=== PATIENT | male | born 1980 | race Two or more races ===

== ENCOUNTER 2017-09-19 22:17 | Emergency (ER) | payer MEDICAID ==
[~2017-09-19] VITALS: Ht 165.1 cm; Wt 88.9 kg
[2017-09-19] MEDS ORDERED: OMEPRAZOLE (22:45)
--- NOTE | 2017-09-19 23:30 | NUR ---
Patient discharged to home in stable conditon. Written and verbal after care instructions given. Patient verbalizes understanding of instructions.
== END 2017-09-19 23:31 | disposition home or self-care (01) ==
LOC: ER 22:18
DX: B34.9 Viral infection, unspecified (principal); K21.9 Gastro-esophageal reflux disease without esophagitis
CPT/HCPCS: 71045; A4663

== ENCOUNTER 2018-12-21 19:02 | Emergency (ER) | payer MEDICAID ==
[~2018-12-21] VITALS: Ht 165.1 cm; Wt 88.5 kg
[~2018-12-21 19:02] MED LIST: OMEPRAZOLE
--- NOTE | 2018-12-21 19:20 | NUR ---
Dr. Franklin at bedside for MSE.
[2018-12-21] MEDS ORDERED: MAG HYDROX/AL HYDROX/SIMETH 30 ML LIQUID UDC ONE (19:26)
[2018-12-21] MEDS ORDERED: PANTOPRAZOLE SODIUM 40 MG TABLET.DR PO ONE (19:27)
[2018-12-21] MEDS ORDERED: LIDOCAINE VISCUS 2% 15 ML UDC ONE (19:27)
[2018-12-21] MEDS: MAG HYDROX/AL HYDROX/SIMETH 30 ML LIQUID UDC PO ONE (19:28)
[2018-12-21] MEDS: LIDOCAINE VISCUS 2% 15 ML UDC MM ONE (19:28)
[2018-12-21] MEDS: PANTOPRAZOLE SODIUM 40 MG TABLET.DR PO ONE (19:28)
--- NOTE | 2018-12-21 19:50 | NUR ---
Patient discharged to home in stable conditon. Written and verbal after care instructions given. Patient verbalizes understanding of instructions. Pt ambulated out of ER with steady gait, no acute signs of distress, VSS, all belongings taken.
[2018-12-21 19:53] VITALS: BP 154/97
== END 2018-12-21 19:54 | disposition home or self-care (01) ==
LOC: ER 19:02
DX: K29.70 Gastritis, unspecified, without bleeding (principal); K21.9 Gastro-esophageal reflux disease without esophagitis; Z79.899 Other long term (current) drug therapy
CPT/HCPCS: A4663

== ENCOUNTER 2019-11-14 19:17 | Emergency (ER) | payer MEDICAID ==
[~2019-11-14] VITALS: Ht 165.1 cm; Wt 90.7 kg
[2019-11-14 20:17] VITALS: BP 157/98
== END 2019-11-14 20:17 | disposition home or self-care (01) ==
LOC: ER 19:18
DX: F41.9 Anxiety disorder, unspecified (principal); R51 Headache
CPT/HCPCS: A4663

== ENCOUNTER 2020-02-20 20:35 | Emergency (ER) | payer MEDICAID ==
[~2020-02-20] VITALS: Ht 165.1 cm; Wt 83.9 kg
[2020-02-20] MEDS ORDERED: MAG HYDROX/AL HYDROX/SIMETH 30 ML LIQUID UDC ONE (21:11)
[2020-02-20] MEDS ORDERED: LIDOCAINE VISCUS 2% 15 ML UDC ONE (21:11)
[2020-02-20] MEDS ORDERED: PANTOPRAZOLE SODIUM 40 MG TABLET.DR PO ONE ×2 (21:11→21:15)
[2020-02-20] MEDS ORDERED: LIDOCAINE VISCUS 2% 15 ML UDC MM ONE (21:15)
[2020-02-20] MEDS ORDERED: MAG HYDROX/AL HYDROX/SIMETH 30 ML LIQUID UDC PO ONE (21:15)
--- NOTE | 2020-02-20 21:15 | NUR ---
Assumed care for this patient at this time. Triage done and Dr. Franklin has seen patient with orders for meds given by collections clerk. Appears to be tolerating the medications given. VS monitored and stable at this time. Side rails up x 1. Bed locked in place. Monitoring for signs of improvement after PO meds.
--- NOTE | 2020-02-20 21:35 | NUR ---
Pt verbalized that he is feeling better, and would like to go home. Patient was cleared for discharged to home. Written and verbal after care instructions given. Patient verbalizes understanding of instructions. Stressed follow up or return to ER for worsening s/s. Ambulated out of ER in steady gait.
[2020-02-20 21:37] VITALS: BP 145/85
== END 2020-02-20 21:38 | disposition home or self-care (01) ==
LOC: ER 20:36
DX: K29.70 Gastritis, unspecified, without bleeding (principal); R19.7 Diarrhea, unspecified; F41.9 Anxiety disorder, unspecified
CPT/HCPCS: A4663

== ENCOUNTER 2021-07-21 15:52 | Emergency (ER) | payer MEDICAID ==
[~2021-07-21] VITALS: Ht 165.1 cm; Wt 86.2 kg
[2021-07-21] MEDS ORDERED: PANTOPRAZOLE SODIUM 40 MG TABLET.DR PO ONE ×2 (19:45)
[2021-07-21] MEDS ORDERED: OMEP40CA21 PO (19:57)
[2021-07-21 20:02] VITALS: BP 120/87
--- NOTE | 2021-07-21 20:02 | NUR ---
Patient discharged to home in stable condition. Written and verbal after care instructions given. Patient verbalizes understanding of instructions. Stressed follow up or return to ER for worsening s/s. Patient out of ER with steady gait, no acute signs of distress, VSS, all belongings taken.
== END 2021-07-21 20:02 | disposition home or self-care (01) ==
LOC: ER 15:56
DX: K29.70 Gastritis, unspecified, without bleeding (principal); K21.9 Gastro-esophageal reflux disease without esophagitis
CPT/HCPCS: A4663

== ENCOUNTER 2021-09-14 20:54 | Emergency (ER) | payer MEDICAID ==
[~2021-09-14] VITALS: Ht 165.1 cm; Wt 86.2 kg
[~2021-09-14 20:54] MED LIST changes: +OMEP40CA21 PO
[2021-09-14] MEDS ORDERED: MAG HYDROX/AL HYDROX/SIMETH 30 ML LIQUID UDC PO ONE (21:15)
[2021-09-14] MEDS ORDERED: LIDOCAINE VISCUS 2% 15 ML UDC MM ONE (21:15)
[2021-09-14] MEDS ORDERED: MAG HYDROX/AL HYDROX/SIMETH 30 ML LIQUID UDC ONE (21:38)
[2021-09-14] MEDS ORDERED: ZOLP10TA2 PO ×2 (22:09→22:15)
[2021-09-14] MEDS ORDERED: MELA3TAB41 PO (22:09)
[2021-09-14] MEDS ORDERED: OMEP40CA21 PO (22:09)
--- NOTE | 2021-09-14 22:19 | NUR ---
Patient discharged to home in stable condition. Written and verbal after care instructions given. Patient verbalizes understanding of instructions. Stressed follow up or return to ER for worsening s/s.
[2021-09-14 22:20] VITALS: BP 129/97
== END 2021-09-14 22:20 | disposition home or self-care (01) ==
LOC: ER 20:55
DX: K29.70 Gastritis, unspecified, without bleeding (principal); F41.9 Anxiety disorder, unspecified; G47.00 Insomnia, unspecified; I45.10 Unspecified right bundle-branch block; R03.0 Elevated blood-pressure reading, without diagnosis of hypertension
CPT/HCPCS: 93005; A4663

== ENCOUNTER 2022-05-03 12:28 | Emergency (ER) | payer MEDICAID ==
[~2022-05-03] VITALS: Ht 165.1 cm; Wt 88.5 kg
[~2022-05-03 12:28] MED LIST changes: +MELA3TAB41 PO; -OMEPRAZOLE; +ZOLP10TA2 PO
[2022-05-03] MEDS ORDERED: IBUPROFEN 600 MG TABLET PO ONE (12:45)
[2022-05-03] MEDS ORDERED: IBUPROFEN 600 MG TABLET ONE (13:00)
--- NOTE | 2022-05-03 13:03 | NUR ---
PT IS IN ROOM #2A. DR ROSSI EVALUATED THE PT.
[2022-05-03 14:11] LABS: HEMATOCRIT 44.6 % (36.7-47.1); MEAN CORPUSCULAR HEMOGLOBIN 28.8 uug (23.8-33.4); MEAN CORPUSCULAR VOLUME 85.8 fL (73.0-96.2); PLATELET COUNT (AUTO) 192 K/uL (152-348)
[2022-05-03 14:36] LABS: CARBON DIOXIDE 27 mmol/L (21-32); CHLORIDE 103 mmol/L (98-107); GLUCOSE 100 mg/dL (74-106); UREA NITROGEN, BLOOD 15 mg/dL (7-18)
[2022-05-03] MEDS ORDERED: IBUP-1955 PO (15:03)
--- NOTE | 2022-05-03 16:13 | NUR ---
PT WAS D/C'd TO HOME. D/C INSTRUCTIONS GIVEN TO THE PT BY DR ROSSI.
[2022-05-03 16:14] VITALS: BP 135/75
== END 2022-05-03 16:14 | disposition home or self-care (01) ==
LOC: ER 12:28
DX: R07.89 Other chest pain (principal); F41.9 Anxiety disorder, unspecified; R94.31 Abnormal electrocardiogram [ECG] [EKG]; K21.9 Gastro-esophageal reflux disease without esophagitis; Z79.899 Other long term (current) drug therapy
CPT/HCPCS: 36415; 71045; 84484; 85025; 93005; A4663

== ENCOUNTER 2023-01-31 05:51 | Emergency (ER) | payer MEDICAID ==
[~2023-01-31] VITALS: Ht 165.1 cm; Wt 88.5 kg
[~2023-01-31 05:51] MED LIST changes: +IBUP-1955 PO; +OMEP20CA15 PO
--- NOTE | 2023-01-31 06:30 | NUR ---
Patient A/O X 4. NAD noted. Ambulatory with a steady gait.
--- NOTE | 2023-01-31 07:04 | NUR ---
Patient discharged to home in stable condition by Dr. Woods. A/O x 4. NAD noted. Ambulatory with a steady gait. Written and verbal after care instructions given. Patient verbalizes understanding of instructions. Stressed follow up or return to ER for worsening s/s.
== END 2023-01-31 07:05 | disposition home or self-care (01) ==
LOC: ER 05:51
DX: B34.9 Viral infection, unspecified (principal); R07.89 Other chest pain; Z79.1 Long term (current) use of non-steroidal anti-inflammatories (NSAID); Z79.899 Other long term (current) drug therapy
CPT/HCPCS: 93005; A4663

== ENCOUNTER 2023-06-23 02:52 | Emergency (ER) | payer MEDICAID ==
[~2023-06-23] VITALS: Ht 165.1 cm; Wt 86.2 kg
[~2023-06-23 02:52] MED LIST changes: +ACET325T53 PO; +CYCL10TA9 PO; +IBUP-1953 PO; -IBUP-1955 PO; -MELA3TAB41 PO; -OMEP20CA15 PO; -OMEP40CA21 PO; -ZOLP10TA2 PO
[2023-06-23] MEDS ORDERED: ACET1TAB23 PO (03:39)
[2023-06-23 03:58] VITALS: BP 153/91; TEMP 98.3; O2SAT 99
== END 2023-06-23 03:50 | disposition home or self-care (01) ==
LOC: ER 02:56
DX: R51.9 Headache, unspecified (principal); M54.2 Cervicalgia; R12 Heartburn; G47.00 Insomnia, unspecified; E16.1 Other hypoglycemia; Z79.1 Long term (current) use of non-steroidal anti-inflammatories (NSAID); Z79.899 Other long term (current) drug therapy
CPT/HCPCS: A4606; A4663

== ENCOUNTER 2023-09-06 17:38 | Emergency (ER) | payer MEDICAID ==
[~2023-09-06] VITALS: Ht 165.1 cm; Wt 84.8 kg
[~2023-09-06 17:38] MED LIST changes: +ACET1TAB23 PO
[2023-09-06 17:47] VITALS: O2SAT 98
[2023-09-06] MEDS ORDERED: LORAZEPAM 0.5 MG TABLET PO ONE (18:15)
[2023-09-06] MEDS ORDERED: LORAZEPAM 0.5 MG TABLET ONE (18:39)
[2023-09-06] MEDS ORDERED: LORA0.5T48 PO (18:46)
== END 2023-09-06 19:04 | disposition home or self-care (01) ==
LOC: ER 17:41
DX: F41.9 Anxiety disorder, unspecified (principal); Z79.899 Other long term (current) drug therapy
CPT/HCPCS: A4606; A4663

== ENCOUNTER 2024-01-18 01:12 | Emergency (ER) | payer MEDICAID ==
[~2024-01-18] VITALS: Ht 165.1 cm; Wt 86.2 kg
[~2024-01-18 01:12] MED LIST changes: +CYCL5TAB PO; +LORA0.5T48 PO; +NAPR500T6 PO
[2024-01-18] MEDS ORDERED: FAMOTIDINE 20 MG TABLET ONE (01:38)
[2024-01-18] MEDS: FAMOTIDINE 20 MG TABLET PO ONE (01:39)
[2024-01-18 02:15] LABS: BASOPHILS # (AUTO) 0.1 K/UL (0.0-0.2); BASOPHILS % (AUTO) 0.9 % (0.0-2.0); EOSINOPHILS # (AUTO) 0.1 K/uL (0.0-0.7); HEMATOCRIT 44.2 % (36.7-47.1); HEMOGLOBIN 15.2 g/dL (12.5-16.3); LYMPHOCYTES # (AUTO) 1.8 K/uL (0.8-4.8); LYMPHOCYTES % (AUTO) 20.9 % (20.5-51.5); MEAN CORPUSCULAR HEMOGLOBIN 29.4 uug (23.8-33.4); MEAN CORPUSCULAR HGB CONC 34 g/dL (32.5-36.3); MEAN CORPUSCULAR VOLUME 85.3 fL (73.0-96.2); MONOCYTES # (AUTO) 0.5 K/uL (0.1-1.30); MONOCYTES % (AUTO) 6.1 % (0.0-11.0); NEUTROPHILS % (AUTO) 71.1 % (38.5-71.5); PLATELET COUNT (AUTO) 173 K/uL (152-348); RED BLOOD CELL COUNT(AUTO) 5.19 MIL/uL (4.06-5.63); RED CELL DISTRIBUTION WIDTH 14.5 % (12.1-16.2); WHITE BLOOD COUNT (AUTO) 8.5 K/uL (3.6-10.2)
[2024-01-18 02:16] LABS: DIFFERENTIAL COMMENT 1
[2024-01-18 02:25] LABS: CALCIUM 8.7 mg/dL (8.5-10.1); CREATININE 1.1 mg/dL (0.6-1.3); POTASSIUM 3.6 mmol/L (3.5-5.1)
[2024-01-18 02:26] LABS: *BILIRUBIN,URIN NEGATIVE (NEGATIVE); *BLOOD, URINE NEGATIVE (NEGATIVE); *CLARITY,URINE CLEAR (CLEAR); *COLOR,URINE YELLOW (YELLOW); *KETONES,URINE NEGATIVE (NEGATIVE); *PROTEIN,URINE TRACE (NEGATIVE); *UROBILINOGEN,URINE 0.2 E.U./dl (NORMAL); LEUKOCYTE ESTERASE ,URINE NEGATIVE (NEGATIVE); NITRITE, URINE NEGATIVE (NEGATIVE); UGLUCOSE NEGATIVE (NEGATIVE)
[2024-01-18 02:30] LABS: BILIRUBIN,DIRECT 0.1 mg/dL (0.0-0.2); BILIRUBIN,TOTAL 0.6 mg/dL (0.2-1.0); TOTAL PROTEIN, SERUM 8.1 g/dL (6.4-8.2)
[2024-01-18] MEDS ORDERED: MAG HYDROX/AL HYDROX/SIMETH 30 ML LIQUID UDC ONE (02:45)
[2024-01-18] MEDS ORDERED: LIDOCAINE VISCUS 2% 15 ML UDC ONE (02:45)
[2024-01-18] MEDS: LIDOCAINE VISCUS 2% 15 ML UDC MM ONE (02:47)
[2024-01-18] MEDS: MAG HYDROX/AL HYDROX/SIMETH 30 ML LIQUID UDC PO ONE (02:48)
[2024-01-18] MEDS ORDERED: MAG355OR18 PO (03:34)
[2024-01-18 03:40] VITALS: BP 144/71; O2SAT 68
== END 2024-01-18 03:41 | disposition home or self-care (01) ==
LOC: ER 01:14
DX: R10.13 Epigastric pain (principal); K29.20 Alcoholic gastritis without bleeding; R03.0 Elevated blood-pressure reading, without diagnosis of hypertension; F41.9 Anxiety disorder, unspecified; Z79.899 Other long term (current) drug therapy
CPT/HCPCS: 36415; 83690; 85025; A4606; A4663

== ENCOUNTER → 2024-01-23 | Emergency (ER) | payer MEDICAID ==
[~2024-01-23] VITALS: Ht 165.1 cm; Wt 86.2 kg
[~2024-01-23] MED LIST changes: +DICYCLOMINE HCL LIQ 10 MG/5 ML UDC ONE; +FAMO40TA7 PO; +FAMOTIDINE 20 MG TABLET ONE; +LIDOCAINE HCL 2% 20 ML VIAL ONE; +LIDOCAINE VISCUS 2% 15 ML UDC ONE; +MAG HYDROX/AL HYDROX/SIMETH 30 ML LIQUID UDC ONE; +MAG355OR18 PO
[2024-01-23] MEDS: DICYCLOMINE HCL LIQ 10 MG/5 ML UDC PO ONE (01:42)
[2024-01-23] MEDS: MAG HYDROX/AL HYDROX/SIMETH 30 ML LIQUID UDC PO ONE (01:42)
[2024-01-23] MEDS: LIDOCAINE VISCUS 2% 15 ML UDC MM ONE (01:42)
[2024-01-23] MEDS: FAMOTIDINE 20 MG TABLET PO ONE (01:42)
[2024-01-23 01:50] LABS: *BILIRUBIN,URIN NEGATIVE (NEGATIVE); *CLARITY,URINE CLEAR (CLEAR); *COLOR,URINE YELLOW (YELLOW); *KETONES,URINE NEGATIVE (NEGATIVE); *PROTEIN,URINE NEGATIVE (NEGATIVE); *UROBILINOGEN,URINE 0.2 E.U./dl (NORMAL); LEUKOCYTE ESTERASE ,URINE NEGATIVE (NEGATIVE); NITRITE, URINE NEGATIVE (NEGATIVE); UGLUCOSE NEGATIVE (NEGATIVE)
[2024-01-23 02:17] LABS: *BLOOD, URINE TRACE (NEGATIVE)
[2024-01-23 02:35] VITALS: BP 134/88; O2SAT 99
[2024-01-23 02:40] LABS: BACTERIA,URINE FEW /HPF (NONE SEEN); RBC,URINE 0-3 /HPF (0-3); SQUAMOUS EPITHELIAL CELL,UR FEW /HPF (NONE SEEN); WBC,URINE NONE SEEN /HPF (0-3)
== END | disposition home or self-care (01) ==
LOC: ER 00:57
DX: M54.6 Pain in thoracic spine (principal); Z79.899 Other long term (current) drug therapy
CPT/HCPCS: 99285; 71045; 81001; 83690; 36415; 93005; J3490; A4606; A4663

== ENCOUNTER 2024-12-31 03:25 | Emergency (ER) | payer MEDICAID ==
[~2024-12-31] VITALS: Ht 165.1 cm; Wt 86.6 kg
[~2024-12-31 03:25] MED LIST changes: -DICYCLOMINE HCL LIQ 10 MG/5 ML UDC ONE; -FAMOTIDINE 20 MG TABLET ONE; -LIDOCAINE HCL 2% 20 ML VIAL ONE; -LIDOCAINE VISCUS 2% 15 ML UDC ONE; -MAG HYDROX/AL HYDROX/SIMETH 30 ML LIQUID UDC ONE
[2024-12-31] MEDS ORDERED: DEXTROSE 5% IV ONE (04:30)
[2024-12-31] MEDS ORDERED: CEFTAROLINE FOSAMIL ACETATE IV ONE (04:30)
[2024-12-31] MEDS ORDERED: LORAZEPAM 2 MG/1 ML VIAL ONE (04:37)
[2024-12-31] MEDS: LORAZEPAM 2 MG/1 ML VIAL IV ONE (04:46)
[2024-12-31 04:55] LABS: CALCIUM 6.9 mg/dL (8.5-10.1); CARBON DIOXIDE 21 mmol/L (21-32); CHLORIDE 110 mmol/L (98-107); CREATININE 0.6 mg/dL (0.6-1.3); ETHANOL < 3 MG/DL (0-10); GLUCOSE 94 mg/dL (74-106); SODIUM SERUM 142 mmol/L (136-145); UREA NITROGEN, BLOOD 7 mg/dL (7-18)
[2024-12-31 04:57] LABS: POTASSIUM 2.6 mmol/L (3.5-5.1)
[2024-12-31 05:00] LABS: ALANINE AMINOTRANSFERASE 24 U/L (16-63); ALKALINE PHOSPHATASE 54 U/L (50-136); ASPARTATE AMINOTRANSFERASE 13 U/L (15-37); BILIRUBIN,TOTAL 0.4 mg/dL (0.2-1.0); MAGNESIUM 1.4 mg/dL (1.8-2.4)
[2024-12-31] MEDS ORDERED: POTASSIUM CHLORIDE 300 ML ONE (05:13)
[2024-12-31] MEDS ORDERED: MAGNESIUM SULFATE/D5W 200 ML ONE (05:14)
[2024-12-31] MEDS: POTASSIUM CHLORIDE 50 ML IV ONE (05:16)
[2024-12-31] MEDS: MAGNESIUM SULFATE/D5W 100 ML IV ONE (05:16)
[2024-12-31] MEDS: POTASSIUM BICARBONATE/CIT AC 25 MEQ TABLET.EFF PO ONE (05:33)
[2024-12-31] MEDS ORDERED: POTASSIUM BICARBONATE/CIT AC 25 MEQ TABLET.EFF ONE (05:38)
[2024-12-31] MEDS ORDERED: PARO-142 PO (06:12)
[2024-12-31 07:10] LABS: CALCIUM 9.2 mg/dL (8.5-10.1); CREATININE 0.8 mg/dL (0.6-1.3)
[2024-12-31 11:28] VITALS: BP 139/90; O2SAT 97
== END 2024-12-31 11:29 | disposition home or self-care (01) ==
LOC: ER 03:35
DX: F41.9 Anxiety disorder, unspecified (principal); E83.42 Hypomagnesemia; E87.6 Hypokalemia; Z79.899 Other long term (current) drug therapy; Z87.19 Personal history of other diseases of the digestive system
CPT/HCPCS: 80053; 80048; 83735; 84484; 36415; 93005; 99285; 96365; 96366 ×2; 96368; 96375; 80320; J2060; J3475; J3480; J7040; A4606; A4663; G0480; J7050